=== PATIENT | female | born 1940 | race Caucasian/White ===

== ENCOUNTER 2017-01-19 11:43 | Emergency (ER) | payer MEDICARE, BC ==
[2017-01-19] MEDS ORDERED: traMADol HCL 50 MG TABLET PO ONE (12:08)
[2017-01-19] MEDS ORDERED: traMADol HCL 50 MG TABLET ONE (12:11)
--- NOTE | 2017-01-19 12:17 | ERNOTE ---
Back Pain ER HPI Date of Service: 01/19/17 Time Seen by Provider: 01/19/17 11:50 Source: patient, family Exam Limitations: no limitations Immunizations: IMMUNIZATION HX History of Influenza Vaccine More Information Required Hx Pneumococcal Vaccination More Information Required Allergies/Adverse Reactions: Allergies lisinopril Allergy (Intermediate, Verified 01/19/17 11:50) Swelling of Throat acetaminophen [From Vicodin] Allergy (Mild, Verified 01/19/17 11:50) Hives hydrocodone bitartrate [From Vicodin] Allergy (Mild, Verified 01/19/17 11:50) Hives Home Medications: HOME MEDICATIONS Aspirin [Ecotrin] 325 mg PO QAM 08/30/13 [Last Taken Unknown] Cyanocobalamin (Vitamin B-12) [B-12] 2,500 mcg PO DAILY 08/30/13 [Last Taken Unknown] Metoprolol Succinate 50 mg PO DAILY 08/30/13 [Last Taken 01/01/16 08:30] Simvastatin 20 mg PO DAILY 08/30/13 [Last Taken Unknown] Pantoprazole Sodium [Protonix] 40 mg PO BID #60 tablet. 09/23/14 [Last Taken Unknown] Potassium Chloride [K-Dur] 20 meq PO BIDWM #60 tablet.sa 09/23/14 [Last Taken Unknown] Amlodipine Besylate [Norvasc] 2.5 mg PO DAILY #30 tab 04/16/15 [Last Taken 12/31 08:30] Alendronate Sodium [Fosamax] 70 mg PO Q7D 12/29/15 [Last Taken Unknown] Calcium Carbonate/Vitamin D3 [Calcium 600 + Vit D 200 Tablet] 1 each PO BID [Last Taken Unknown] Hydrochlorothiazide 12.5 mg PO DAILY 12/29/15 [Last Taken 01/01/16 08:30] Loratadine [Claritin] 10 mg PO DAILY 12/29/15 [Last Taken Unknown] Meloxicam [Mobic] 7.5 mg PO BID 12/29/15 [Last Taken Unknown] Promethazine HCl [Phenergan] 25 mg PO Q4H PRN 12/29/15 [Last Taken Unknown] traMADol HCL [Tramadol HCl] 50 mg PO QID PRN #20 tablet 01/19/17 [Last Taken Unknown] Narrative: Patient states she sat down on the couch the other day and slowly started having some pain in her right hip extending down into her right thigh. States the pain comes and goes and is not directly on the spine. States she has no pain with walking or movement but more when she sits for longer periods of time on the couch. Denies any numbness or tingling down past the right knee. Denies any other injuries or complications. Date (Duration): 01/15/17 Timing: Reports: intermittent Quality/Severity: Reports: moderate Location of pain: Reports: radiating to rt thigh/leg, other - right hip Activities at Onset: Reports: other - sat down on couch Recent Injury?: Reports: no Possible Precipitating Factor: Reports: none Modifying Factors - (Improves): Reports: nothing Modifying Factors - (Worsens): Reports: other - Sitting for longer periods of time Associated Symptoms: Reports: none Prior Treament: Reports: other - Has a history of compression fracture. Review of Systems - Narrative Narrative: See HPI - Review of Systems Constitutional: Present: no symptoms reported Musculoskeletal: Present: other - as mentioned right hip pain extending from the right side of the lumbar through the sciatic area out into the right anterior thigh. Denies any pain past the knee. No pain with ambulation or movement of the hip. Mainly when sitting longer periods of time. Denies any spinal pain. No injury or trauma recent. Skin: Present: no symptoms reported Neurological: Present: no symptoms reported Hematologic/Lymphatic: Present: no symptoms reported - Patient's Past Medical History Patient History - Medical: Arthritis, Osteoarthritis, Osteoporosis, Other Patient History - Cardiac/Respiratory: Hypertension, Hyperlipidemia Patient History - Cancer: No Hx of Cancer Patient History - Surgical Procedures: Colonoscopy, D & C, Hysterectomy, Other Patient History - Other: None - Family History Father Family History - Medical: , No pertinent hx Family History - Cardiac/Respiratory: No pertinent hx Mother Family History - Medical: , No pertinent hx Family History - Cardiac/Respiratory: Hypertension Sister Family History - Medical: , Other Family History - Cardiac/Respiratory: Pulmonary Embolism - Social History Living Situations: home Abuse History: No History of abuse Psych History: No pertinent hx Alcohol Use: none Drug Use: none - Immunizations Hx Pneumococcal Vaccination: More Information Required to Determine History of Influenza Vaccine: More Information Required to Determine Physical Exam - Physical Exam Narrative: No acute distress. Patient ambulates with no difficulty. Very unlikely a fracture is present. General Appearance: Present: wd/wn, no apparent distress Respiratory: Present: no respiratory distress Peripheral Pulses: N=norm/S=strong/W=weak/B=bound/A=absent: Dorsalis-pedis (R): Normal Back Exam: Present: normal inspection, no CVA tenderness, no vertebral tenderness, other - Does have right mild paraspinal tenderness across the tip of the hip. Extremity Exam: Present: other - No pain with palpation of the right anterior thigh although patient states discomfort is deeper. Straight leg raise negative. Has expected full ROM of the right hip and waist. Neurological Exam: Present: alert, oriented, no motor/sensory deficits Skin Exam: Present: normal color, warm/dry ED Progress - Vital Signs Patient's Vital Signs:: I have reviewed the patient's vital signs. Vital Signs: Vital Signs 01/19/17 11:46 Temperature 36.2 C L Pulse Rate 66 Respiratory 12 Rate Blood Pressure 134/86 O2 Sat by Pulse 95 Oximetry - Progress/Reassessment Chief Complaint: Back Pain Progress:: Improved Progress Note-Subjective: 01/19/17 12:26 States pain is improving - Transfer of Care Expected Disposition: Discharge Departure Clinical Impression: Lumbar radiculopathy, right - Departure Disposition: Home Follow Up Needed Condition: Good Additional Instructions: Likely nerve pain extending from the lumbar spine into the right hip and thigh. Will treat your symptoms and refer you to therapy for further evaluation and treatment. If you have not heard from the therapist by Friday call them to set up an appointment. Otherwise follow up with family provider as needed. Referrals: Dominga Puri DO [Primary Care Provider] - Prescriptions: traMADol HCL [Tramadol HCl] 50 mg PO QID PRN #20 tablet PRN Reason: Muscle Pain
[2017-01-19 13:16] VITALS: BP 122/76
== END 2017-01-19 12:22 | disposition home or self-care (01) ==
LOC: ER 11:43
DX: M54.16 Radiculopathy, lumbar region (principal); M19.90 Unspecified osteoarthritis, unspecified site; I10 Essential (primary) hypertension; E78.5 Hyperlipidemia, unspecified

== ENCOUNTER 2017-03-11 09:32 | Day surgery (SDC) | payer MEDICARE, BC ==
[~2017-03-11 09:32] MED LIST: RINGER'S SOLUTION,LACTATED 1,000 ML IV PRN
--- NOTE | 2017-03-11 12:48 | OR ---
Operative Report - Dictated Report Narrative: Date 03/11/2017 Preoperative diagnosis: Blood in stool, screening colonoscopy Postoperative diagnosis: Severe kitchen colonic diverticulosis, polyp at 25 cm Procedure: Total colonoscopy with biopsy Staff surgeon: Duke Hoffmann MD Anesthesia: MAC per [employer] EBL: Minimal Specimen: Polyp at 25 cm Description of procedure: After informed consent and appropriate sedation the patient was placed in the left lateral decubitus position. A flexible fiberoptic video colonoscope was introduced and advanced under direct vision without difficulty to the cecum. The usual landmarks were identified. Preparation was excellent and excellent views were obtained. The findings were of pancolonic severe diverticulosis otherwise a normal cecum, ascending colon, hepatic flexure, transverse colon, splenic flexure, descending colon, sigmoid colon, a sessile polyp was found at 25 cm and a cold biopsy was performed and then the polyp was destroyed with cautery. Otherwise the rectum was normal on retroflex view was normal. The mucosal collar, vasculature, and texture were normal throughout. No suspicious masses were seen. The patient tolerated the procedure well without apparent complications and was discharged from the endoscopy suite in stable condition.
[2017-03-11 13:12] VITALS: BP 126/60
== END 2017-03-11 09:33 | disposition home or self-care (01) ==
LOC: AMB 09:32
PROVIDERS: ATTEND Specialist
PROC: 0D5N8ZZ Destruction of Sigmoid Colon, Via Natural or Artificial Opening Endoscopic (ICD-10-PCS; principal; 2017-03-11)
DX: Z12.11 Encounter for screening for malignant neoplasm of colon (principal); D12.5 Benign neoplasm of sigmoid colon; K57.30 Diverticulosis of large intestine without perforation or abscess without bleeding; K92.1 Melena; I10 Essential (primary) hypertension; F17.210 Nicotine dependence, cigarettes, uncomplicated